=== PATIENT | female | born 1940 | race Caucasian/White ===

== ENCOUNTER 2024-06-13 11:56 | Inpatient (IN) | payer OTHER, MEDICARE ==
[~2024-06-13] VITALS: Ht 154.9 cm; Wt 92.0 kg
[2024-06-13 12:45] LABS: BASOPHILS # (AUTO) 0.1 X10'3 (0-0.2); BASOPHILS % (AUTO) 0.3 % (0-1); EOSINOPHILS % (AUTO) 0 % (0-6); HEMATOCRIT 36.4 % (35.0-45.0); HEMOGLOBIN 11.6 g/dl (12.0-16.0); LYMPHOCYTES # (AUTO) 0.7 X10'3 (1.1-4.8); LYMPHOCYTES % (AUTO) 3.4 % (21-51); MEAN CORPUSCULAR HEMOGLOBIN 31.8 PG (27.0-31.0); MEAN CORPUSCULAR HGB CONC 31.9 g/dL (33.0-36.5); MEAN CORPUSCULAR VOLUME 99.7 FL (78-98); MEAN PLATELET VOLUME 6.4 FL (7.4-10.4); MONOCYTES # (AUTO) 0.7 X10'3 (0-0.9); MONOCYTES % (AUTO) 3.6 % (2-12); NEUTROPHILS # (AUTO) 19.3 X10'3 (1.8-7.7); NEUTROPHILS % (AUTO) 92.7 % (42-75); PLATELET COUNT 315 X10'3 (140-440); RED BLOOD COUNT 3.65 X10'6 (4.20-5.60); RED CELL DISTRIBUTION WIDTH 12.5 % (11.5-14.5); WHITE BLOOD COUNT 20.8 X10'3 (4.5-11.0)
[2024-06-13 12:59] LABS: ALANINE AMINOTRANSFERASE 12 U/L (12-78); ALBUMIN 2.6 G/DL (3.4-5.0); ALBUMIN/GLOBULIN RATIO 0.6 (1.1-1.5); ALKALINE PHOSPHATASE 106 IU/L (46-116); ANION GAP 13 (8-16); ASPARTATE AMINO TRANSFERASE 19 U/L (10-37); BILIRUBIN,TOTAL 0.4 MG/DL (0.1-1.0); BLOOD UREA NITROGEN 40 MG/DL (7-18); BUN/CREATININE RATIO 16.8 (10.0-20.0); CALCIUM 8.4 MG/DL (8.5-10.1); CHLORIDE 99 MMOL/L (99-107); CREATININE 2.38 MG/DL (0.40-0.90); GLUCOSE 191 MG/DL (70-104); POTASSIUM 3.6 MMOL/L (3.5-5.1); SODIUM 135 MMOL/L (135-145); TOTAL CARBON DIOXIDE 23.3 MMOL/L (24-32); TOTAL PROTEIN 6.7 G/DL (6.4-8.2); eCRCL 13 ML/MIN; eGFR 19 ML/MIN
[2024-06-13 13:07] LABS: PRO BRAIN NATRIURETIC PEPTIDE 20364 PG/ML (0-450)
[2024-06-13] MEDS: CefTRIAXone 2gm/D5W 50ml BAG 50 ML IV ONE (13:27)
[2024-06-13 13:40] LABS: BILIRUBIN,URINE NEGATIVE (Neg); CLARITY,URINE CLOUDY (Clear); COLOR,URINE YELLOW (Yellow); GLUCOSE, URINE NEGATIVE (Neg); KETONES,URINE TRACE mg/dl (Neg); LEUKOCYTE ESTERASE ,URINE SMALL (Neg); NITRITES, URINE NEGATIVE (Neg); OCCULT BLOOD,URINE TRACE-INTACT (Neg); PH,URINE 7.5 (4.8-8.0); PROTEIN,URINE >=300 mg/dl (Neg); UROBILINOGEN,URINE 0.2 E.U/dL (0.2-1.0)
[2024-06-13 13:46] LABS: UA COLLECTION TYPE VOIDED
[2024-06-13 13:51] LABS: AMORPHOUS URATES 3+
[2024-06-13 13:52] LABS: BACTERIA,URINE 4+ /HPF (Neg); RBC,URINE NONE SEEN /HPF (0-2); SQUAMOUS EPITHELIAL CELL,UR MODERATE /LPF (FEW); WBC,URINE 0-4 /HPF (0-4)
[2024-06-13] MEDS ORDERED: magnesium Cl slow-release 64mg tablet PO PRN (14:10)
[2024-06-13] MEDS ORDERED: acetaminophen 325mg tablet PO PRN ×2 (14:10)
[2024-06-13] MEDS ORDERED: potassium Cl 20 mEq SR tablet PO PRN (14:10)
[2024-06-13] MEDS ORDERED: mag hydrox/Alum hydrox/simeth 30ml oral suspension PO PRN (14:10)
[2024-06-13] MEDS ORDERED: magnesium sulf-water 4G/100mL 100 ML IV PRN (14:10)
[2024-06-13] MEDS ORDERED: ondansetron/PF 4mg/2ml inj IV PRN (14:10)
[2024-06-13] MEDS ORDERED: magnesium sulf-water 2g/50mL 50 ML IV PRN (14:10)
[2024-06-13] MEDS ORDERED: potassium Cl 40MEQ/1/2NS 520ml 520 ML IV PRN (14:10)
[2024-06-13] MEDS ORDERED: magnesium hydroxide 30ml (MOM) UD suspension PO PRN (14:10)
[2024-06-13] MEDS: normal saline 1000ML IV soln IVB ONE (14:11)
[2024-06-13] MEDS ORDERED: UNABLE TO OBTAIN (14:14)
[2024-06-13] MEDS: furosemide 20 MG/2 ML vial IV ONE (14:54)
[2024-06-13] MEDS: normal saline 1000ml 1,000 ML IV SCH (14:54)
[2024-06-13] MEDS: azithromycin/NS 500mg/250ml 250 ML IV SCH (14:56)
[2024-06-13 15:10] LABS: APTT 30 SECONDS (22-32); INR 1.1 INR; PROTHROMBIN TIME 11.5 SECONDS (9.0-12.0)
[2024-06-13 15:30] LABS: THYROID STIMULATING HORMONE 2.3 ulU/ml (0.34-4.50)
[2024-06-13] MEDS: guaiFENesin ER 600mg tablet PO SCH (16:03)
[2024-06-13 16:06] VITALS: PULSE 94; PULSE 98; RESP 21; RESP 23; O2SAT 100; O2SAT 95
[2024-06-13] MEDS: ipratropium/albuterol 3ml nebule NEB SCH (16:06)
[2024-06-13] MEDS: INSULIN LISPRO 100 UNIT/ML INSULN.PEN MULTI-DOSE SQ SCH ×2 (17:00→18:00)
[2024-06-13 17:30] LABS: ABG BASE EXCESS -5.3 mmol/L (-2.0-3.0); ABG OXYGEN SATURATION 90.1 % (94.0-98.0); ABG PCO2 (T) 32.4 mmHg (32.0-45.0); ABG PH (T) 7.385 (7.350-7.450); ABG PO2 (T) 62.2 mmHg (83.0-108.0); ALLEN'S TEST POSITIVE; FHHb 9.9 % (0.0-5.0); FLOW 2 L/min; FMetHb 0.3 % (0.0-1.5); FO2Hb 89.8 % (94.0-98.0); MODE NASAL CANNULA; TOTAL HEMOGLOBIN 10.8 G/dl (12.0-16.0)
[2024-06-13] MEDS: normal saline 1000ml 1,000 ML IV ONE (18:32)
[2024-06-13 19:30] VITALS: PULSE 75; RESP 20; O2SAT 94
[2024-06-13 19:37] VITALS: PULSE 76; RESP 20
[2024-06-13] MEDS: K and/or MAG REPLACEMENT MC SCH (20:34)
[2024-06-13] MEDS: docusate sod 100mg capsule PO SCH (20:36)
[2024-06-13] MEDS: heparin, porcine 5000 units/ml vial SQ SCH (20:36)
[2024-06-13] MEDS: insulin glargine (Lantus) pen - multi-dose SQ SCH (21:00)
[2024-06-13 22:39] VITALS: PULSE 80; RESP 20; O2SAT 92
[2024-06-13 22:46] VITALS: PULSE 76; RESP 20
[2024-06-14] VITALS (21 sets, daily range): BP systolic 90–140; BP diastolic 40–69; PULSE 65–87; RESP 12–22; TEMP 97.3–98.7; O2SAT 90–96
[2024-06-14] MEDS ORDERED: azithromycin/NS 500mg/250ml 250 ML IV SCH (08:00)
[2024-06-14] MEDS ORDERED: CefTRIAXone/D5W-Rocephin 1gm 50 ML IV SCH (08:00)
[2024-06-14 08:01] LABS: BASOPHILS % (AUTO) 0.2 % (0-1); EOSINOPHILS % (AUTO) 0 % (0-6); HEMATOCRIT 28.9 % (35.0-45.0); HEMOGLOBIN 9.4 g/dl (12.0-16.0); LYMPHOCYTES # (AUTO) 1.1 X10'3 (1.1-4.8); LYMPHOCYTES % (AUTO) 5.5 % (21-51); MEAN CORPUSCULAR HEMOGLOBIN 32.3 PG (27.0-31.0); MEAN CORPUSCULAR HGB CONC 32.4 g/dL (33.0-36.5); MEAN CORPUSCULAR VOLUME 99.6 FL (78-98); MEAN PLATELET VOLUME 6.6 FL (7.4-10.4); MONOCYTES % (AUTO) 4.6 % (2-12); NEUTROPHILS # (AUTO) 18.7 X10'3 (1.8-7.7); NEUTROPHILS % (AUTO) 89.7 % (42-75); PLATELET COUNT 223 X10'3 (140-440); RED BLOOD COUNT 2.91 X10'6 (4.20-5.60); RED CELL DISTRIBUTION WIDTH 12.3 % (11.5-14.5); WHITE BLOOD COUNT 20.8 X10'3 (4.5-11.0)
[2024-06-14 08:13] LABS: ALANINE AMINOTRANSFERASE 9 U/L (12-78); ALBUMIN 1.7 G/DL (3.4-5.0); ALBUMIN/GLOBULIN RATIO 0.5 (1.1-1.5); ALKALINE PHOSPHATASE 73 IU/L (46-116); ANION GAP 10 (8-16); ASPARTATE AMINO TRANSFERASE 17 U/L (10-37); BILIRUBIN,TOTAL 0.3 MG/DL (0.1-1.0); BLOOD UREA NITROGEN 45 MG/DL (7-18); BUN/CREATININE RATIO 18.6 (10.0-20.0); CALCIUM 7.7 MG/DL (8.5-10.1); CHLORIDE 104 MMOL/L (99-107); CREATININE 2.42 MG/DL (0.40-0.90); GLUCOSE 81 MG/DL (70-104); MAGNESIUM 1.5 MG/DL (1.5-2.4); SODIUM 138 MMOL/L (135-145); TOTAL CARBON DIOXIDE 23.6 MMOL/L (24-32); TOTAL PROTEIN 5.3 G/DL (6.4-8.2); eCRCL 13 ML/MIN; eGFR 19 ML/MIN
[2024-06-14 08:14] LABS: CHOL/HDL RATIO 2.2 (0.00-4.99); CHOLESTEROL 102 MG/DL (0-200); HDL CHOLESTEROL 47 MG/DL (35-60); LDL CHOLESTEROL 40 MG/DL (50-100); TRIGLYCERIDES 73 MG/DL (20-135)
[2024-06-14] MEDS ORDERED: piperacillin/tazo 3.375gm/50ml 50 ML IV SCH (08:45)
[2024-06-14] MEDS: furosemide 40mg/4ml inj IV SCH (08:51)
[2024-06-14] MEDS: potassium Cl 20 mEq SR tablet PO PRN (08:52)
[2024-06-14] MEDS: methylPREDNISolone sod succ 125mg/2ml vial IV ONE (09:48)
[2024-06-14] MEDS: piperacillin/tazo 3.375gm/50ml 50 ML IV SCH ×2 (11:00→19:44)
[2024-06-14 11:54] LABS: TOTAL PROTEIN,URINE RANDOM 755.5 MG/DL
[2024-06-14 12:33] LABS: D-DIMER 4.05 MG/L FEU (0-0.50)
[2024-06-14] MEDS: methylPREDNISolone sod succ/PF 40mg inj. IV SCH (13:19)
[2024-06-14] MEDS ORDERED: GLIM4TAB7 PO (15:40)
[2024-06-14] MEDS ORDERED: PANT40TA54 (15:40)
[2024-06-14] MEDS ORDERED: ATOR40TA72 PO (15:40)
[2024-06-14] MEDS ORDERED: CARV25TA2 (15:40)
[2024-06-14] MEDS ORDERED: FURO40TA4 PO (15:40)
[2024-06-14] MEDS ORDERED: LOSA50TA64 PO (15:40)
[2024-06-14] MEDS ORDERED: normal saline 1000ml 1,000 ML IV ONE (17:50)
[2024-06-14] MEDS: normal saline 1000ml 1,000 ML IV ONE (17:58)
[2024-06-14] MEDS: nystatin 15 GM powder TP SCH (20:00)
[2024-06-15] VITALS (19 sets, daily range): BP systolic 122–154; BP diastolic 53–85; PULSE 72–93; RESP 15–26; TEMP 97–97.8; O2SAT 93–98
[2024-06-15] MEDS: methylPREDNISolone sod succ/PF 40mg inj. IV SCH (08:56)
[2024-06-15] MEDS: INSULIN LISPRO 100 UNIT/ML INSULN.PEN MULTI-DOSE SQ SCH (09:00)
[2024-06-15] MEDS: normal saline 1000ml 1,000 ML IV ONE ×2 (11:55→16:37)
[2024-06-15 16:25] LABS: BASOPHILS % (AUTO) 0 % (0-1); EOSINOPHILS % (AUTO) 0 % (0-6); HEMATOCRIT 32.6 % (35.0-45.0); HEMOGLOBIN 10.5 g/dl (12.0-16.0); LYMPHOCYTES # (AUTO) 0.5 X10'3 (1.1-4.8); LYMPHOCYTES % (AUTO) 3.6 % (21-51); MEAN CORPUSCULAR HEMOGLOBIN 32.8 PG (27.0-31.0); MEAN CORPUSCULAR HGB CONC 32.2 g/dL (33.0-36.5); MEAN CORPUSCULAR VOLUME 101.9 FL (78-98); MEAN PLATELET VOLUME 6.6 FL (7.4-10.4); MONOCYTES # (AUTO) 0.4 X10'3 (0-0.9); NEUTROPHILS # (AUTO) 12.4 X10'3 (1.8-7.7); NEUTROPHILS % (AUTO) 93.4 % (42-75); PLATELET COUNT 242 X10'3 (140-440); RED CELL DISTRIBUTION WIDTH 13.2 % (11.5-14.5); WHITE BLOOD COUNT 13.3 X10'3 (4.5-11.0)
[2024-06-15 17:09] LABS: ALANINE AMINOTRANSFERASE 18 U/L (12-78); ALBUMIN 1.9 G/DL (3.4-5.0); ALBUMIN/GLOBULIN RATIO 0.5 (1.1-1.5); ALKALINE PHOSPHATASE 87 IU/L (46-116); ANION GAP 14 (8-16); ASPARTATE AMINO TRANSFERASE 20 U/L (10-37); BILIRUBIN,TOTAL 0.3 MG/DL (0.1-1.0); BLOOD UREA NITROGEN 58 MG/DL (7-18); BUN/CREATININE RATIO 24.7 (10.0-20.0); CALCIUM 7.8 MG/DL (8.5-10.1); CHLORIDE 102 MMOL/L (99-107); CREATININE 2.35 MG/DL (0.40-0.90); GLUCOSE 223 MG/DL (70-104); POTASSIUM 4.2 MMOL/L (3.5-5.1); SODIUM 133 MMOL/L (135-145); TOTAL CARBON DIOXIDE 17.1 MMOL/L (24-32); TOTAL PROTEIN 6.1 G/DL (6.4-8.2); eCRCL 13 ML/MIN; eGFR 20 ML/MIN
[2024-06-16] VITALS (20 sets, daily range): BP systolic 92–199; BP diastolic 50–103; PULSE 70–96; RESP 14–29; TEMP 96.9–97.7; O2SAT 91–96
[2024-06-16 06:50] LABS: BASOPHILS % (AUTO) 0.1 % (0-1); EOSINOPHILS % (AUTO) 0 % (0-6); HEMATOCRIT 35.5 % (35.0-45.0); HEMOGLOBIN 11.5 g/dl (12.0-16.0); LYMPHOCYTES # (AUTO) 0.4 X10'3 (1.1-4.8); LYMPHOCYTES % (AUTO) 3.5 % (21-51); MEAN CORPUSCULAR HEMOGLOBIN 32.1 PG (27.0-31.0); MEAN CORPUSCULAR HGB CONC 32.3 g/dL (33.0-36.5); MEAN CORPUSCULAR VOLUME 99.6 FL (78-98); MONOCYTES # (AUTO) 0.5 X10'3 (0-0.9); NEUTROPHILS # (AUTO) 11.4 X10'3 (1.8-7.7); NEUTROPHILS % (AUTO) 92.4 % (42-75); PLATELET COUNT 290 X10'3 (140-440); RED BLOOD COUNT 3.57 X10'6 (4.20-5.60); RED CELL DISTRIBUTION WIDTH 12.8 % (11.5-14.5); WHITE BLOOD COUNT 12.3 X10'3 (4.5-11.0)
[2024-06-16 07:11] LABS: ALANINE AMINOTRANSFERASE 23 U/L (12-78); ALBUMIN 2.1 G/DL (3.4-5.0); ALBUMIN/GLOBULIN RATIO 0.4 (1.1-1.5); ALKALINE PHOSPHATASE 93 IU/L (46-116); ANION GAP 12 (8-16); ASPARTATE AMINO TRANSFERASE 20 U/L (10-37); BILIRUBIN,TOTAL 0.3 MG/DL (0.1-1.0); BLOOD UREA NITROGEN 60 MG/DL (7-18); BUN/CREATININE RATIO 26.8 (10.0-20.0); CALCIUM 8.3 MG/DL (8.5-10.1); CHLORIDE 103 MMOL/L (99-107); CREATININE 2.24 MG/DL (0.40-0.90); GLUCOSE 202 MG/DL (70-104); LACTATE DEHYDROGENASE 296 U/L (81-234); POTASSIUM 3.8 MMOL/L (3.5-5.1); SODIUM 137 MMOL/L (135-145); TOTAL CARBON DIOXIDE 22.5 MMOL/L (24-32); eCRCL 14 ML/MIN; eGFR 21 ML/MIN
[2024-06-16] MEDS: HYDROcodone/acetaminophen 5mg/325mg tablet PO PRN (08:21)
[2024-06-16] MEDS: INSULIN LISPRO 100 UNIT/ML INSULN.PEN MULTI-DOSE SQ SCH (09:00)
[2024-06-16] MEDS ORDERED: KEP500T PO (12:17)
[2024-06-16] MEDS ORDERED: ASPI-1265 PO (12:19)
[2024-06-16] MEDS: metoprolol tartrate 1mg/ml inj IV ONE (12:54)
[2024-06-16] MEDS: losartan 50mg tablet PO SCH (13:06)
[2024-06-16] MEDS: carVEDilol 12.5mg tablet PO SCH (14:29)
[2024-06-16] MEDS: albuterol 2.5 MG/3 ML nebule NEB PRN (17:25)
[2024-06-16] MEDS: lactose-reduced food (Ensure Enlive) - 237ml bottle PO SCH (18:00)
[2024-06-16] MEDS: insulin glargine (Lantus) pen - multi-dose SQ SCH (21:39)
[2024-06-17] VITALS (17 sets, daily range): BP systolic 118–185; BP diastolic 53–73; PULSE 76–98; RESP 13–26; TEMP 97.3–98.2; O2SAT 90–97
[2024-06-17 03:33] LABS: BASOPHILS % (AUTO) 0.3 % (0-1); EOSINOPHILS % (AUTO) 0 % (0-6); HEMATOCRIT 35.7 % (35.0-45.0); HEMOGLOBIN 11.7 g/dl (12.0-16.0); LYMPHOCYTES # (AUTO) 0.5 X10'3 (1.1-4.8); LYMPHOCYTES % (AUTO) 3.9 % (21-51); MEAN CORPUSCULAR HEMOGLOBIN 32.2 PG (27.0-31.0); MEAN CORPUSCULAR HGB CONC 32.8 g/dL (33.0-36.5); MEAN CORPUSCULAR VOLUME 98.2 FL (78-98); MEAN PLATELET VOLUME 6.7 FL (7.4-10.4); MONOCYTES # (AUTO) 0.4 X10'3 (0-0.9); MONOCYTES % (AUTO) 3.8 % (2-12); NEUTROPHILS # (AUTO) 10.9 X10'3 (1.8-7.7); PLATELET COUNT 305 X10'3 (140-440); RED BLOOD COUNT 3.63 X10'6 (4.20-5.60); RED CELL DISTRIBUTION WIDTH 12.4 % (11.5-14.5); WHITE BLOOD COUNT 11.9 X10'3 (4.5-11.0)
[2024-06-17 03:45] LABS: ALANINE AMINOTRANSFERASE 20 U/L (12-78); ALBUMIN 1.9 G/DL (3.4-5.0); ALBUMIN/GLOBULIN RATIO 0.5 (1.1-1.5); ALKALINE PHOSPHATASE 79 IU/L (46-116); ANION GAP 8 (8-16); ASPARTATE AMINO TRANSFERASE 9 U/L (10-37); BILIRUBIN,TOTAL 0.4 MG/DL (0.1-1.0); BLOOD UREA NITROGEN 59 MG/DL (7-18); BUN/CREATININE RATIO 27.4 (10.0-20.0); CALCIUM 8.1 MG/DL (8.5-10.1); CHLORIDE 104 MMOL/L (99-107); CREATININE 2.15 MG/DL (0.40-0.90); GLUCOSE 191 MG/DL (70-104); MAGNESIUM 1.8 MG/DL (1.5-2.4); POTASSIUM 3.9 MMOL/L (3.5-5.1); SODIUM 137 MMOL/L (135-145); TOTAL CARBON DIOXIDE 24.8 MMOL/L (24-32); eCRCL 14 ML/MIN; eGFR 22 ML/MIN
[2024-06-17] MEDS: atorvastatin 20mg tablet PO SCH (08:57)
[2024-06-17] MEDS: aspirin 81mg, enteric-coated 1 TAB TABLET.DR PO SCH (08:57)
[2024-06-17] MEDS: INSULIN LISPRO 100 UNIT/ML INSULN.PEN MULTI-DOSE SQ SCH (09:00)
[2024-06-17] MEDS: metoprolol tartrate 1mg/ml inj IV ONE (16:58)
[2024-06-17] MEDS: insulin glargine (Lantus) pen - multi-dose SQ SCH (22:29)
[2024-06-18] VITALS (12 sets, daily range): BP systolic 137–193; BP diastolic 60–103; PULSE 67–81; RESP 16–20; TEMP 97.5–98.6; O2SAT 92–97
[2024-06-18 06:17] LABS: BASOPHILS % (AUTO) 0.1 % (0-1); EOSINOPHILS % (AUTO) 0 % (0-6); HEMATOCRIT 33.8 % (35.0-45.0); HEMOGLOBIN 10.9 g/dl (12.0-16.0); LYMPHOCYTES # (AUTO) 0.6 X10'3 (1.1-4.8); LYMPHOCYTES % (AUTO) 4.9 % (21-51); MEAN CORPUSCULAR HEMOGLOBIN 31.7 PG (27.0-31.0); MEAN CORPUSCULAR HGB CONC 32.3 g/dL (33.0-36.5); MEAN CORPUSCULAR VOLUME 98.1 FL (78-98); MEAN PLATELET VOLUME 6.8 FL (7.4-10.4); MONOCYTES # (AUTO) 0.7 X10'3 (0-0.9); MONOCYTES % (AUTO) 6.2 % (2-12); NEUTROPHILS # (AUTO) 10.3 X10'3 (1.8-7.7); NEUTROPHILS % (AUTO) 88.8 % (42-75); PLATELET COUNT 277 X10'3 (140-440); RED BLOOD COUNT 3.44 X10'6 (4.20-5.60); RED CELL DISTRIBUTION WIDTH 12.3 % (11.5-14.5); WHITE BLOOD COUNT 11.6 X10'3 (4.5-11.0)
[2024-06-18 06:51] LABS: ALANINE AMINOTRANSFERASE 15 U/L (12-78); ALBUMIN 1.9 G/DL (3.4-5.0); ALBUMIN/GLOBULIN RATIO 0.5 (1.1-1.5); ALKALINE PHOSPHATASE 90 IU/L (46-116); ANION GAP 11 (8-16); ASPARTATE AMINO TRANSFERASE 16 U/L (10-37); BILIRUBIN,TOTAL 0.3 MG/DL (0.1-1.0); BLOOD UREA NITROGEN 76 MG/DL (7-18); BUN/CREATININE RATIO 31.9 (10.0-20.0); CALCIUM 8.3 MG/DL (8.5-10.1); CHLORIDE 105 MMOL/L (99-107); CREATININE 2.38 MG/DL (0.40-0.90); GLUCOSE 198 MG/DL (70-104); POTASSIUM 4.3 MMOL/L (3.5-5.1); SODIUM 139 MMOL/L (135-145); TOTAL PROTEIN 5.7 G/DL (6.4-8.2); eCRCL 13 ML/MIN; eGFR 19 ML/MIN
[2024-06-18 08:01] LABS: TOTAL CELLS COUNTED 100
[2024-06-18 08:02] LABS: PLATELET ESTIMATE NORMAL
[2024-06-19] VITALS: BP 150/74; PULSE 79
[2024-06-19 02:00] VITALS: BP 156/71; PULSE 70; RESP 16; TEMP 96.9; O2SAT 96
[2024-06-19] MEDS ORDERED: DEXTROSE 15 GM of carb/4 tabs (each vial/BOTTLE has 4 tablets) PO PRN ×2 (07:20)
[2024-06-19] MEDS ORDERED: glucagon, human recombinant 1mg kit SUBCUT PRN (07:20)
[2024-06-19] MEDS ORDERED: dextrose 50%-water 50ml dispensing syringe IV PRN ×2 (07:20)
[2024-06-19 07:30] VITALS: BP 162/66; PULSE 80; RESP 12; TEMP 97.7; O2SAT 93
[2024-06-19 10:48] VITALS: BP 145/65; PULSE 82; RESP 18; TEMP 97.9; O2SAT 94
[2024-06-19] MEDS: lactobacillus rhamnosus 10,000 MMU CELLS/CAPSULE PO SCH (12:13)
== END 2024-06-19 15:25 | DRG 177 ==
LOC: ER 11:59 → ED HOLD 13:31 → UNDOADMIN 13:31 → ED HOLD 16:41 → PCU 3S 23:40
PROVIDERS: ADMIT Family Medicine; ATTEND Family Medicine
PROC: CB121ZZ Planar Nuclear Medicine Imaging of Lungs and Bronchi using Technetium 99m (Tc-99m) (ICD-10-PCS; principal; 2024-06-15)
PROC: 05HD33Z Insertion of Infusion Device into Right Cephalic Vein, Percutaneous Approach (ICD-10-PCS; 2024-06-16)
PROC: B54MZZA Ultrasonography of Right Upper Extremity Veins, Guidance (ICD-10-PCS; 2024-06-16)
DX: J69.0 Pneumonitis due to inhalation of food and vomit (principal); E43 Unspecified severe protein-calorie malnutrition; I21.A1 Myocardial infarction type 2; J96.01 Acute respiratory failure with hypoxia; I13.0 Hypertensive heart and chronic kidney disease with heart failure and stage 1 through stage 4 chronic kidney disease, or unspecified chronic kidney disease; N18.4 Chronic kidney disease, stage 4 (severe); N39.0 Urinary tract infection, site not specified; Z20.822 Contact with and (suspected) exposure to COVID-19; E11.22 Type 2 diabetes mellitus with diabetic chronic kidney disease; E66.01 Morbid (severe) obesity due to excess calories; I16.0 Hypertensive urgency; E88.09 Other disorders of plasma-protein metabolism, not elsewhere classified; I50.9 Heart failure, unspecified; E11.65 Type 2 diabetes mellitus with hyperglycemia; Z68.38 Body mass index [BMI] 38.0-38.9, adult; Z86.73 Personal history of transient ischemic attack (TIA), and cerebral infarction without residual deficits
CPT/HCPCS: 36410; 36415; 36600; 71045; 76604; 76770; 76937; 78582; 80053; 80061; 81001; 82570; 82607; 82803; 82948; 83036; 83605; 83615; 83735; 83880; 84145; 84156; 84300; 84443; 84484; 84540; 85007; 85018; 85025; 85379; 85610; 85730; 87040; 87070; 87081; 87088; 87502; 87503; 87811; 93005; 93306; 93970; 94640; 94760; 97110; 97116; 97162; 99285; A6209; A6212; A6213; A6250; A6449; A9539; A9540; C1751; G0378; J0456; J0696; J1644; J1815; J1940; J2543; J2919; J3490; J7030